=== PATIENT | male | born 1975 | race Caucasian/White ===

== ENCOUNTER 2018-03-04 05:36 | Emergency (ER) | payer BC ==
[~2018-03-04] VITALS: Ht 180.3 cm; Wt 106.6 kg
[2018-03-04 05:47] VITALS: BP 129/88
--- NOTE | 2018-03-04 06:46 | ED.ADGEN ---
Past History Past Medical History: Other Past Surgical History: Tonsillectomy, Other Alcohol Use: Occasionally Drug Use: None Adult General HPI HPI Patient is a 42 year old male who presents with complaint of left outer ear ache. Patient was seen in the clinic yesterday and started on amoxicillin for otitis externa/otitis media. Patient denies any history of diabetes. Patient states that pain is worse and not better and that these had 2 doses of antibiotics at this time. He states he can't go through the week and like this and just wants something for pain. Patient is alert and oriented has no lateralizing neurological deficits has no pain other than the ear area although he says that now it's a little sore when he chews because of the movement is referred to the ear area. Review of Systems Review of Systems Constitutional: Denies fever or chills [] Eyes: Denies change in visual acuity, redness, or eye pain [] HENT: Denies nasal congestion or sore throat [positive for ear pain] Respiratory: Denies cough or shortness of breath [] Cardiovascular: No additional information not addressed in HPI [] GI: Denies abdominal pain, nausea, vomiting, bloody stools or diarrhea [] : Denies dysuria or hematuria [] Musculoskeletal: Denies back pain or joint pain [] Integument: Denies rash or skin lesions [] Neurologic: Denies headache, focal weakness or sensory changes [] Endocrine: Denies polyuria or polydipsia [] All other systems were reviewed and found to be within normal limits, except as documented in this note. Current Medications Current Medications Current Medications Medications (Trade) Dose Ordered Sig/[facility] Start Time Stop Time Status Last Admin Dose Admin Ceftriaxone Sodium (Rocephin Im) 1 gm 1X ONCE 03/04/18 07:00 03/04/18 07:01 DC 03/04/18 06:56 1 GM Ciprofloxacin 1 drop 1X ONCE 03/04/18 07:30 03/04/18 07:31 Ketorolac Tromethamine (Toradol Im) 60 mg 1X ONCE 03/04/18 07:00 03/04/18 07:01 DC 03/04/18 06:56 60 MG Allergies Allergies Allergies Coded Allergies Type Severity Reaction Last Updated Verified Sulfa (Sulfonamide Antibiotics) Allergy Unknown rash 04/14/14 No Physical Exam Physical Exam Constitutional: Well developed, well nourished, no acute distress, non-toxic appearance. [] HENT: Normocephalic, atraumatic, patient with left tragus and antitragus are somewhat swollen and erythematous, oropharynx moist, no oral exudates, nose normal. [] Eyes: PERRLA, EOMI, conjunctiva normal, no discharge. [] Neck: Normal range of motion, no tenderness, supple, no stridor. [] Cardiovascular:Heart rate regular rhythm, no murmur [] Lungs & Thorax: Bilateral breath sounds clear to auscultation [] Abdomen: Bowel sounds normal, soft, no tenderness, no masses, no pulsatile masses. [] Skin: Warm, dry, no erythema, no rash. [] Back: No tenderness, no CVA tenderness. [] Extremities: No tenderness, no cyanosis, no clubbing, ROM intact, no edema. [] Neurologic: Alert and oriented X 3, normal motor function, normal sensory function, no focal deficits noted. [] Psychologic: Affect normal, judgement normal, mood normal. [] Current Patient Data Vital Signs Vital Signs Date Time Temp Pulse Resp B/P (MAP) Pulse Ox O2 Delivery O2 Flow Rate FiO2 03/04/18 05:47 97.5 68 19 96 Room Air EKG EKG [] Radiology/Procedures Radiology/Procedures [] Course & Med Decision Making Course & Med Decision Making Pertinent Labs and Imaging studies reviewed. (See chart for details) [] Final Impression Final Impression Otitis externa[] Dragon Disclaimer Dragon Disclaimer This electronic medical record was generated, in whole or in part, using a voice recognition dictation system. BUDDY ALEXANDRA MD Mar 04, 2018 06:46
[2018-03-04] MEDS ORDERED: TRAM1TAB56 PO (06:57)
[2018-03-04] MEDS ORDERED: CIPR10DR AS (06:57)
[2018-03-04] MEDS ORDERED: cefTRIAXone IM 1 GM VIAL IM ONE (07:00)
[2018-03-04] MEDS ORDERED: KETOROLAC 60 MG/2 ML VIAL. IM ONE (07:00)
[2018-03-04] MEDS ORDERED: CIPROFLOXACIN 0.3% OPHTH SOLUTION 2.5ML BOTTLE. OS ONE (07:30)
[2018-03-05] MEDS ORDERED: CITA20TA6 PO (22:12)
== END 2018-03-04 07:05 | disposition home or self-care (01) ==
LOC: ER 05:36
DX: H60.92 Unspecified otitis externa, left ear (principal); Z88.2 Allergy status to sulfonamides
CPT/HCPCS: 96372; 99284; J0696; J1885

== ENCOUNTER 2018-03-05 18:04 | Inpatient (IN) | payer BC ==
[~2018-03-05] VITALS: Ht 180.3 cm; Wt 109.4 kg
[~2018-03-05 18:04] MED LIST: CIPR10DR AS; TRAM1TAB56 PO
[2018-03-05] MEDS ORDERED: IOHEXOL 300 MG/ML 50 ML VIAL. IV ONE (18:30)
[2018-03-05] MEDS ORDERED: KETOROLAC 30 MG/ML VIAL. IV ONE (18:30)
--- NOTE | 2018-03-05 18:32 | PHYS DOC ---
Past History Past Medical History: Other Past Surgical History: Tonsillectomy, Other Alcohol Use: Occasionally Drug Use: None Adult General Chief Complaint Chief Complaint: EARACHE/EAR PAIN [facility] HPI 42-year-old male returns to the ED with continued left ear pain. He was seen in the emergency room a couple days ago and diagnosed with severe otitis externa. He was given Toradol IM as well as Rocephin. He was discharged with fluoroquinolone drops and ibuprofen. Toradol was later called into a pharmacy. The patient has been using the drops, but is concerned that they're unable to get into the area with swelling. He went to dinner this evening and after dinner his pain was as significant swelling first came in. He is requesting more aggressive antibiotic treatment of possible and better pain control. He also is worried the infection may be affecting surrounding structures. A CT scan was not performed with the patient's previous visit. He is taking amoxicillin from his PCP. Patient denies fever or chills. He has decreased hearing in the left ear.. Review of Systems Review of Systems Constitutional: Denies fever or chills [] Eyes: Denies change in visual acuity, redness, or eye pain [] HENT: Denies nasal congestion or sore throat. Swollen left ear. [] Respiratory: Denies cough or shortness of breath [] Cardiovascular: No additional information not addressed in HPI [] GI: Denies abdominal pain, nausea, vomiting, bloody stools or diarrhea [] : Denies dysuria or hematuria [] Musculoskeletal: Denies back pain or joint pain [] Integument: Denies rash or skin lesions [] Neurologic: Denies headache, focal weakness or sensory changes [] Endocrine: Denies polyuria or polydipsia [] All other systems were reviewed and found to be within normal limits, except as documented in this note. Allergies Allergies Allergies Coded Allergies Type Severity Reaction Last Updated Verified Sulfa (Sulfonamide Antibiotics) Allergy Unknown rash 04/14/14 No Physical Exam Physical Exam Constitutional: Well developed, well nourished, no acute distress, non-toxic appearance. [] HENT: Normocephalic, atraumatic, oropharynx moist, no oral exudates, nose normal. Preauricular swelling of the left ear. Erythematous, swollen external ear canal. The left ear. No visible drainage. Tympanic membrane unable to visualized.[] Eyes: PERRLA, EOMI, conjunctiva normal, no discharge. [] Neck: Normal range of motion, no tenderness, supple, no stridor. [] Cardiovascular:Heart rate regular rhythm, no murmur [] Lungs & Thorax: Bilateral breath sounds clear to auscultation [] Abdomen: Bowel sounds normal, soft, no tenderness, no masses, no pulsatile masses. [] Skin: Warm, dry, no erythema, no rash. [] Back: No tenderness, no CVA tenderness. [] Extremities: No tenderness, no cyanosis, no clubbing, ROM intact, no edema. [] Neurologic: Alert and oriented X 3, normal motor function, normal sensory function, no focal deficits noted. [] Psychologic: Affect normal, judgement normal, mood normal. [] Current Patient Data Vital Signs Vital Signs Date Time Temp Pulse Resp B/P (MAP) Pulse Ox O2 Delivery O2 Flow Rate FiO2 03/05/18 18:18 96.8 75 20 98 Room Air EKG EKG [] Radiology/Procedures Radiology/Procedures [] Impressions: CT head without and with contrast: Reason for examination: Left ear and head pain. This has been a continuous problem with ear infections. Seen at ENT but having a lot of pain right now. Axial images were obtained through the brain. Pre and post administration of 50 cc Omnipaque 300. Exposure: One or more of the following individualized dose reduction techniques were utilized for this examination: 1. Automated exposure control 2. Adjustment of the mA and/or kV according to patient size 3. Use of iterative reconstruction technique. Ventricular systems are symmetric and not dilated. No midline shift is seen. There is no evidence of intracranial hemorrhage, infarct, mass or edema. No gross vascular abnormalities are seen. No abnormalities are seen at the orbits. The paranasal sinuses are clear. There is opacification of a few of the left mastoid air cells. The middle ear cavities show no acute abnormalities. There appears to be some edema in the soft tissues of the left external auditory canal. No acute abnormality seen in the skull. IMPRESSION: No acute intracranial abnormality. Edema in the soft tissues of the left external auditory canal. Opacification of a few of the left mastoid air cells suggesting mastoiditis. Electronically signed by: Malena Randle MD (03/05/2018 7:29 PM) [facility] DICTATED AND SIGNED BY: MALENA RANDLE MD DATE: 03/05/181922 CC: MARIA ANTONIA MG DO; KWAME PEACE Course & Med Decision Making Course & Med Decision Making Pertinent Labs and Imaging studies reviewed. (See chart for details) The patient's CT scan shows opacification of a few of the left mastoid air cells suggesting mastoiditis. The patient has white blood cell count 11.3. He does not have a fever. This appears to be uncomplicated mastoiditis at this point. I discussed the patient with the hospitalist, Dr. Norwood and he has accepted the patient for admission. We will start him on vancomycin and Zosyn in the emergency room. I'm utilizing this approach because the patient has had an infection within the last 6 months in the same year. [] Dragon Disclaimer Dragon Disclaimer This electronic medical record was generated, in whole or in part, using a voice recognition dictation system. Departure Departure: Referrals: KWAME PEACE (PCP) MARIA ANTONIA MG DO Mar 05, 2018 18:32
[2018-03-05] MEDS ORDERED: CONTRAST GIVEN MC PRN (18:45)
[2018-03-05] MEDS ORDERED: IV NORMAL SALINE 100ML 100 ML ONE (18:46)
[2018-03-05 19:01] LABS: BASO # 0.1 x10^3/uL (0.0-0.2); BASO % 1 % (0-3); EOS # 0.2 x10^3/uL (0.0-0.7); EOS % 2 % (0-3); HEMATOCRIT 48.1 % (39.0-53.0); HEMOGLOBIN 16.3 g/dL (13.0-17.5); LYMPH # 2.1 x10^3/uL (1.0-4.8); LYMPH % 19 % (24-48); MEAN CORPUSCULAR HEMOGLOBIN 31 pg (25-35); MEAN CORPUSCULAR HGB CONC 34 g/dL (31-37); MEAN CORPUSCULAR VOLUME 91 fL (79-100); MONO # 1.2 x10^3/uL (0.0-1.1); MONO % 10 % (0-9); NEUT # 7.8 x10^3uL (1.8-7.7); NEUT % 69 % (31-73); PLATELET COUNT 217 x10^3/uL (140-400); RED BLOOD COUNT 5.26 x10^6/uL (4.30-5.70); RED CELL DISTRIBUTION WIDTH 12.9 % (11.5-14.5); WHITE BLOOD COUNT 11.3 x10^3/uL (4.0-11.0)
[2018-03-05 19:08] LABS: CALCIUM 9.5 mg/dL (8.5-10.1); GFR 81.6; POTASSIUM 3.7 mmol/L (3.5-5.1)
--- NOTE | 2018-03-05 19:33 | RAD ---
CT head without and with contrast: Reason for examination: Left ear and head pain. This has been a continuous problem with ear infections. Seen at ENT but having a lot of pain right now. Axial images were obtained through the brain. Pre and post administration of 50 cc Omnipaque 300. Exposure: One or more of the following individualized dose reduction techniques were utilized for this examination: 1. Automated exposure control 2. Adjustment of the mA and/or kV according to patient size 3. Use of iterative reconstruction technique. Ventricular systems are symmetric and not dilated. No midline shift is seen. There is no evidence of intracranial hemorrhage, infarct, mass or edema. No gross vascular abnormalities are seen. No abnormalities are seen at the orbits. The paranasal sinuses are clear. There is opacification of a few of the left mastoid air cells. The middle ear cavities show no acute abnormalities. There appears to be some edema in the soft tissues of the left external auditory canal. No acute abnormality seen in the skull. IMPRESSION: No acute intracranial abnormality. Edema in the soft tissues of the left external auditory canal. Opacification of a few of the left mastoid air cells suggesting mastoiditis. Electronically signed by: Malena Funk MD (03/05/2018 7:29 PM) [facility]
[2018-03-05] MEDS ORDERED: PIPERACILLIN/TAZOBACTAM 4.5 GM in IV NORMAL SALINE 50ML 50 ML IV ONE (20:30)
[2018-03-05] MEDS ORDERED: VANCOMYCIN 2 GM in IV NORMAL SALINE 500ML 500 ML IV ONE (20:30)
[2018-03-05] MEDS ORDERED: PIPERACILLIN/TAZOBACTAM 4.5 GM VIAL IV ONE (20:44)
[2018-03-05] MEDS ORDERED: IV NORMAL SALINE 50ML 50 ML ONE (20:44)
[2018-03-05 21:15] VITALS: BP 142/84
[2018-03-05] MEDS ORDERED: CITA20TA6 PO (22:12)
[2018-03-05] MEDS ORDERED: VANCOMYCIN PER PHARMACY MC PRN (22:15)
[2018-03-05] MEDS ORDERED: PIP/TAZO PER PHARMACY MC PRN (22:15)
[2018-03-05] MEDS: HYDROcodone/APAP 7.5/325MG 1 TAB TABLET PO PRN (22:33)
[2018-03-06] MEDS: PIPERACILLIN/TAZOBACTAM 3.375 GM in IV NORMAL SALINE 50ML 50 ML IV SCH ×4 (01:02→18:13)
[2018-03-06] MEDS: HYDROcodone/APAP 7.5/325MG 1 TAB TABLET PO PRN ×3 (04:30→16:54)
[2018-03-06 05:49] VITALS: BP 130/82
[2018-03-06] MEDS: VANCOMYCIN 1.5 GM in IV NORMAL SALINE 500ML 500 ML IV SCH ×3 (06:07→22:14)
[2018-03-06 06:42] LABS: BASO % 1 % (0-3); EOS # 0.2 x10^3/uL (0.0-0.7); EOS % 2 % (0-3); HEMATOCRIT 42.6 % (39.0-53.0); HEMOGLOBIN 14.7 g/dL (13.0-17.5); LYMPH # 1.8 x10^3/uL (1.0-4.8); LYMPH % 22 % (24-48); MEAN CORPUSCULAR HEMOGLOBIN 31 pg (25-35); MEAN CORPUSCULAR HGB CONC 35 g/dL (31-37); MEAN CORPUSCULAR VOLUME 91 fL (79-100); MONO % 13 % (0-9); NEUT # 5.1 x10^3uL (1.8-7.7); NEUT % 63 % (31-73); PLATELET COUNT 194 x10^3/uL (140-400); RED BLOOD COUNT 4.69 x10^6/uL (4.30-5.70); RED CELL DISTRIBUTION WIDTH 13.2 % (11.5-14.5); WHITE BLOOD COUNT 8.1 x10^3/uL (4.0-11.0)
[2018-03-06 06:50] LABS: CALCIUM 9.1 mg/dL (8.5-10.1); GFR 81.6; POTASSIUM 4.2 mmol/L (3.5-5.1)
[2018-03-06] MEDS: LACTOBACILLUS RHAMNOSUS GG 1 CAPSULE. PO SCH ×2 (08:25→21:26)
[2018-03-06] MEDS: CITALOPRAM 20 MG TABLET. PO SCH (08:25)
[2018-03-06 10:53] VITALS: BP 136/80
--- NOTE | 2018-03-06 12:31 | HP ---
ADMIT DATE: 03/05/2018 HISTORY OF PRESENT ILLNESS: The patient is a 42-year-old male patient who came back to the Emergency Department of [facility] with continued left ear pain. He was seen in the Emergency Room a couple days ago and diagnosed with severe otitis externa. He was given Toradol intramuscular as well as Rocephin. He was discharged with fluoroquinolone drops and ibuprofen. Toradol was later called in to his pharmacy. The patient has been using the drops, but is concerned that they are unable to get into ear to the area with swelling. He went to dinner yesterday evening and after dinner, the pain was significant. His pain worsened and has significant swelling. When he came the first time, he is requesting more aggressive antibiotic treatment and better pain control. He is also worried that an infection may be affecting the surrounding structures. No CT scan was performed on his previous Emergency Room visit. However, he had a CT scan done this time and the patient was admitted and was started on broad spectrum antibiotic in the form of vancomycin and Zosyn. His pain was also controlled with Toradol and oral oxycodone. PAST MEDICAL HISTORY: Significant for depression and previous episodes of otitis externa. He apparently has 2 episodes of otitis externa last year and has had problem with his ears before. He had bilateral myringotomy done. PAST SURGICAL HISTORY: Significant for tonsillectomy, bilateral myringotomy. He has repair of a deviated septum and has also left thumb tendon ruptured that was repaired surgically. ALLERGIES: He is allergic to SULFA DRUGS. MEDICATIONS: He is currently on following medications: He is on Ultracet 1 tablet every 6 hours, citalopram hydrobromide 20 mg once a day and he has ciprofloxacin/hydrocortisone 3 drops twice a day for left affected ear. FAMILY HISTORY: Unknown as he is adopted and does not know his biological parents or his brothers and sisters. SOCIAL HISTORY: He is , has 1 son. He quit smoking a few months ago. He continues to drink alcohol. He drinks 3-4 drinks on the weekends, does not use any drugs. 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 REVIEW OF SYSTEMS: The patient denied any blurring of vision, cataracts, or glaucoma, but did complain of severe earache. He has throbbing pain in his left ear and his left jaw. He has also had headache. Denied any nausea, vomiting, diarrhea, or constipation. Denied any hematemesis, melena, or hematochezia. Denied any dysuria, frequency, or hematuria. Denied any chest pain, shortness of breath, orthopnea or paroxysmal nocturnal dyspnea. Denied any cough, phlegm or hemoptysis. Denied any chills, rigors, or fever. Denied any dizziness, lightheadedness, or vertigo. PHYSICAL EXAMINATION: GENERAL: On arrival to the Emergency Room, he looked well and was clearly in no apparent respiratory distress. No pallor, jaundice, cyanosis, or thyromegaly. No jugular venous distention. No lower limb edema. VITAL SIGNS: His heart rate was 75, blood pressure was 142/84, his temperature was 96.8, respiratory rate was 20, and oxygen saturation was 98%. HEAD, EYES, EARS, NOSE AND THROAT: Showed he is normocephalic, atraumatic. However, he clearly has marked redness and swelling and tenderness in his left ear and the tragus elicits severe pain consistent with otitis externa. He has also some tenderness over his left mastoid area. NECK: Supple. No lymphadenopathy, no thyromegaly, no jugular venous distension, no audible bruits. HEART: Showed normal first and second heart sounds with no gallop, rub, or murmur. CHEST: Clear to auscultation. No crepitation or rhonchi. ABDOMEN: Distended, soft, nontender. NEUROLOGIC: He is awake, alert, responding appropriately. All cranial nerves intact. He moves extremities without difficulty. He ambulates without assistance or assistive devices. LABORATORY DATA: His lab work yesterday showed a white cell count of 11,300, hemoglobin 16, hematocrit 48, MCV 91, and platelet count 217,000 with normal manual differential. His chemistry showed a serum sodium of 141, potassium 3.7, chloride 104, bicarbonate 27, anion gap of 10, BUN 16, creatinine 1, estimated GFR was 81 mL per minute. His glucose was 92, calcium was 9.5. He underwent CT scan of the head, which showed that his ventricular system is symmetric and not dilated. No midline shift is seen. There is no evidence of intracranial hemorrhage, infarct, mass, or edema. No gross vascular abnormalities are seen. No abnormalities are seen at the orbits. The paranasal sinuses are clear. There is opacification of few of the left mastoid air cells. The middle ear cavities show no acute abnormality. There appears to be some edema in the soft tissue of the left external auditory canal; however, no acute abnormality seen in the skull. The impression is that the patient has no acute intracranial abnormality. Edema is in the soft tissues of the left external auditory canal, has opacification in few of the left mastoid air cells suggesting mastoiditis. ASSESSMENT AND PLAN: The patient was admitted and was started on IV vancomycin as well as Zosyn together with pain management. We will continue with this antibiotic regimen maybe for 2-3 days and then he can perhaps be discharged home to continue on IV antibiotic as an outpatient and arrange for him to be seen by an ENT surgeon. BILLY MUJICA MD DR: ISHAAN/aisha JOB#: [id number] / [id number]
[2018-03-06 14:54] VITALS: BP 134/88
--- NOTE | 2018-03-06 15:38 | PN ---
DATE: 03/06/2018 SUBJECTIVE: The patient is resting slightly propped up in bed, in no apparent respiratory distress. He is awake, alert, stating that his headache and pain in his left is much improved compared to yesterday, although still have some discomfort. He denied any nausea or vomiting. Denied any dizziness, lightheadedness, or vertigo. PHYSICAL EXAMINATION: GENERAL: When I saw him this morning, he looked well and was clearly in no apparent respiratory distress. VITAL SIGNS: His heart rate was 64, blood pressure 136/80, temperature was 98, respiratory rate 20, and oxygen saturation was 98%. HEAD, EYES, EARS, NOSE AND THROAT: Showed normocephalic, atraumatic. Examination of the left ear compared to the right showed that it is definitely more red and swollen with tenderness on pressing on the tragus. The left external auditory meatus is narrowed, but definitely marked and swollen with some purulent drainage. There is no tenderness over the mastoid air cells. There is no tenderness in the left jaw or enlarged lymph nodes. NECK: Supple. HEART: Showed normal first and second heart sounds with no gallop, rub, or murmur. CHEST: Clear to auscultation. No crepitation or rhonchi. ABDOMEN: Distended, soft, nontender. No guarding or rigidity. No organomegaly. All hernial orifices intact. Bowel sounds normal. NEUROLOGIC: He is awake, alert, responding appropriately. Cranial nerves intact. He moves extremities without difficulty, ambulates without assistance or assistive devices. LABORATORY DATA: His lab work this morning showed a serum sodium 141, potassium 4.2, chloride 106, bicarbonate 27, anion gap of 8, BUN 15, creatinine 1, estimated GFR was 82 mL/min. His glucose was 119. Calcium was 9.1. His white cell count was 8100, hemoglobin 14.7, hematocrit 42.6, MCV 91, and platelet count of 194,000. ASSESSMENT AND PLAN: Acute otitis externa and acute mastoiditis. My plan is to continue with IV antibiotic. Continue with topical ciprofloxacin, hydrocortisone ear drops to the left ear and we will monitor his progress and once this redness and swelling has subsided, we can discharge him home to continue with IV or oral antibiotics. BILLY MUJICA MD DR: ISHAAN/aisha JOB#: [id number] / [id number]
[2018-03-06] MEDS: IBUPROFEN 400 MG TABLET. PO PRN (18:13)
[2018-03-06 19:40] VITALS: BP 136/88
[2018-03-06 22:08] LABS: VANC TR 15.3 mcg/mL (10.0-20.0)
[2018-03-06 23:04] VITALS: BP 111/70
[2018-03-07] MEDS: PIPERACILLIN/TAZOBACTAM 3.375 GM in IV NORMAL SALINE 50ML 50 ML IV SCH ×4 (00:12→18:08)
[2018-03-07] MEDS: IBUPROFEN 400 MG TABLET. PO PRN ×3 (00:17→20:51)
[2018-03-07 05:46] VITALS: BP 101/61
[2018-03-07] MEDS: VANCOMYCIN 1.5 GM in IV NORMAL SALINE 500ML 500 ML IV SCH ×3 (06:09→22:23)
[2018-03-07 06:44] LABS: ALBUMIN 3.1 g/dL (3.4-5.0); ALBUMIN/GLOBULIN RATIO 0.8 (1.0-1.7); CALCIUM 8.9 mg/dL (8.5-10.1); GFR 81.6; POTASSIUM 4.1 mmol/L (3.5-5.1); TOTAL BILIRUBIN 0.4 mg/dL (0.2-1.0); TOTAL PROTEIN 6.8 g/dL (6.4-8.2)
[2018-03-07] MEDS: LACTOBACILLUS RHAMNOSUS GG 1 CAPSULE. PO SCH ×2 (08:26→20:51)
[2018-03-07] MEDS: CITALOPRAM 20 MG TABLET. PO SCH (08:27)
[2018-03-07 10:54] VITALS: BP 135/88
--- NOTE | 2018-03-07 13:25 | PN ---
DATE: 03/07/2018 SUBJECTIVE: The patient is sitting on the edge of the bed comfortably in no apparent distress. He is feeling much, much better. The pain is much less as well as redness and swelling of the left ear and left external auditory canal. There is no tenderness in the mastoid air cells. OBJECTIVE: GENERAL: On examining him, he looked well and was clearly in no apparent respiratory distress. No pallor, jaundice, cyanosis, or thyromegaly. No jugular venous distension. No lower limb edema. VITAL SIGNS: His heart rate was 57, blood pressure was 135/88, temperature was 98, respiratory rate was 18, and oxygen saturation was 96% on room air. HEAD, EYES, EARS, NOSE AND THROAT: Normocephalic, atraumatic. The erythema and the swelling of the left ear is much less. Also the swelling of soft tissue of the external canal is much less and there is no tenderness in the mastoid air cells on pressing of the tragus. NECK: Supple. CARDIAC: Normal first and second heart sounds with no gallop, rubs, or murmur. CHEST: Clear to auscultation. No crepitation or rhonchi. ABDOMEN: Distended, soft, nontender. NEUROLOGIC: He is awake, alert, responding appropriately. Cranial nerves intact. He moves extremities without difficulty, ambulates without assistance or assistive devices. His intake was 3200, no output was recorded. LABORATORY DATA: His lab work as of this morning showed a serum sodium 141, potassium 4.1, chloride 106, bicarbonate 30, anion gap of 5, BUN 13, creatinine 1, estimated GFR was 81 mL per minute, his glucose 110, calcium was 8.9. Total bilirubin, AST, ALT, alkaline phosphatase were normal. His total protein was 6.8, albumin 3.1. His vancomycin trough level was 15. His most recent white cell count was 8000, hemoglobin 14, hematocrit 42, MCV 91, and platelet count of 194,000. ASSESSMENT: Otitis externa and acute mastoiditis. PLAN: To continue with IV antibiotic as well as Ciprodex. I will continue that and will repeat all his lab work tomorrow and hopefully he can be discharged home to continue oral antibiotics. BILLY MUJICA MD DR: ISHAAN/aisha JOB#: [id number] / [id number]
[2018-03-07 16:16] VITALS: BP 162/81
[2018-03-07 19:29] VITALS: BP 139/84
[2018-03-07 23:33] VITALS: BP 134/73
[2018-03-08] MEDS: PIPERACILLIN/TAZOBACTAM 3.375 GM in IV NORMAL SALINE 50ML 50 ML IV SCH ×3 (00:44→12:11)
[2018-03-08 05:30] VITALS: BP 123/80
[2018-03-08] MEDS: VANCOMYCIN 1.5 GM in IV NORMAL SALINE 500ML 500 ML IV SCH ×2 (06:04→14:00)
[2018-03-08 06:44] LABS: HEMATOCRIT 41.4 % (39.0-53.0); HEMOGLOBIN 14.3 g/dL (13.0-17.5); RED BLOOD COUNT 4.56 x10^6/uL (4.30-5.70); RED CELL DISTRIBUTION WIDTH 12.7 % (11.5-14.5); WHITE BLOOD COUNT 5.5 x10^3/uL (4.0-11.0)
[2018-03-08 06:56] LABS: CALCIUM 8.7 mg/dL (8.5-10.1); GFR 81.6
[2018-03-08] MEDS: LACTOBACILLUS RHAMNOSUS GG 1 CAPSULE. PO SCH (08:51)
[2018-03-08] MEDS: CITALOPRAM 20 MG TABLET. PO SCH (08:51)
[2018-03-08 11:38] VITALS: BP 130/79
[2018-03-08] MEDS ORDERED: AMOX1TAB61 PO (15:34)
--- NOTE | 2018-03-08 18:42 | DS ---
DATE OF DISCHARGE: 03/08/2018 HOSPITAL COURSE: The patient is a 42-year-old male patient who came to the Emergency Room with complaint of left ear pain. He was diagnosed with otitis externa as well as acute mastoiditis. He failed outpatient treatment, so the patient was admitted and was started on IV vancomycin as well as Zosyn together with pain management. The pain, redness and swelling have almost completely subsided. PHYSICAL EXAMINATION: GENERAL: When I saw him today, he looked well and was clearly in no apparent respiratory distress. No pallor, jaundice, cyanosis, or thyromegaly. No jugular venous distension. No lower limb edema. VITAL SIGNS: His heart rate was 56, blood pressure was 130/79, temperature was 97.9, respiratory rate was 18, and oxygen saturation was 97%. HEENT: Examination of the head, eyes, ears, nose and throat showed normocephalic, atraumatic. His external pinna and external auditory meatus has erythema and swelling and is largely subsided. He has no tenderness in the mastoid air cells. NECK: Supple. HEART: Showed normal first and second heart sounds with no gallop, rub or murmur. CHEST: Clear to auscultation. No crepitation or rhonchi. ABDOMEN: Distended, soft, nontender. No guarding or rigidity. No organomegaly. Hernial orifices are intact and bowel sounds normal. NEUROLOGIC: He is awake, alert, responding appropriately. All his cranial nerves are intact. EXTREMITIES: He moves extremities without difficulty. He ambulates without assistance or assistive devices. LABORATORY DATA: His lab work showed a white cell count of 5500, hemoglobin 14, hematocrit 41, MCV 91, and platelet count of 195,000. Serum sodium was 142, potassium 4, chloride 107, bicarbonate 26, anion gap of 9, BUN 13, creatinine 1, estimated GFR was 82 mL per minute. His glucose was 113 and calcium was 8.7. DISCHARGE MEDICATIONS: He was discharged home to continue on Augmentin 875 mg twice a day for 7 days, ciprofloxacin/hydrocortisone ear drops 3 drops to both ears twice a day, and citalopram hydrobromide 20 mg daily. FINAL DISCHARGE DIAGNOSES: 1. Otitis externa. 2. Acute mastoiditis. 3. Depression and anxiety. BILLY MUJICA MD DR: Priti JOB#: [id number] / [id number]
== END 2018-03-08 16:00 | disposition home or self-care (01) | DRG 155 ==
LOC: ER 18:04 → 1 SOUTH 20:57
PROVIDERS: ADMIT Neuromusculoskeletal Medicine & OMM; ATTEND Neuromusculoskeletal Medicine & OMM
DX: H60.502 Unspecified acute noninfective otitis externa, left ear (principal); H70.092 Acute mastoiditis with other complications, left ear; F32.9 Major depressive disorder, single episode, unspecified; F41.9 Anxiety disorder, unspecified; Z87.891 Personal history of nicotine dependence; Z88.2 Allergy status to sulfonamides; Z79.899 Other long term (current) drug therapy
CPT/HCPCS: 36415; 70470; 80048; 80053; 80202; 83880; 85025; 85027; 96374; J0696; J1885; J2543; J3370; J7040; Q9967; 99285-25